=== PATIENT | male | born 1975 | race Caucasian/White ===

== ENCOUNTER 2020-02-18 10:59 | Inpatient (IN) ==
[~2020-02-18 10:59] MED LIST: BUPIVACAINE HCL 50 ML VIAL IJ ONE; RINGER'S SOLUTION,LACTATED 1,000 ML IV PRN; ceFAZolin SODIUM 1 GM VIAL IV PRN; ceFAZolin SODIUM 1 GM VIAL ONE
[2020-02-18] MEDS ORDERED: fentaNYL CITRATE/PF 50 MCG/ML AMPUL ONE (11:10)
[2020-02-18] MEDS ORDERED: ONDANSETRON HCL/PF 2 MG/ML VIAL ONE (11:10)
[2020-02-18] MEDS ORDERED: PROPOFOL VIAL IV ONE (11:10)
[2020-02-18] MEDS ORDERED: SEVOFLURANE 250 ML BTL IH ONE (11:11)
[2020-02-18] MEDS ORDERED: BACITRACIN 50,000 UNITS VIAL ONE (11:12)
--- NOTE | 2020-02-18 11:53 | ANES ---
Anesthesia Pre Procedure Eval Vitals/Labs: Last Vital Signs Temp 36.8 C 02/18/20 11:15 Pulse 105 H 02/18/20 11:15 Resp 18 02/18/20 11:15 BP 163/91 H 02/18/20 11:15 Pulse Ox 99 02/18/20 11:15 HOME MEDICATIONS blood sugar diagnostic See Dose Instructions .ROUTE .MEDSUPPLY #20 ea 09/11/17 [Last Taken Unknown] glimepiride 4 mg tablet 8 mg PO QAM #180 tab 03/30/19 [Last Taken Unknown] lisinopril 20 mg tablet 20 mg PO DAILY #90 tab 06/01/19 [Last Taken Unknown] rosuvastatin 40 mg tablet See Rx Instructions .ROUTE .COMPLEX #90 tab 06/01/19 [Last Taken Unknown] metformin 1,000 mg tablet 1,000 mg PO BID #120 tab 11/10/19 [Last Taken Unknown] pioglitazone 45 mg tablet 45 mg PO DAILY #60 tab 11/10/19 [Last Taken Unknown] sitagliptin 100 mg tablet 100 mg PO DAILY #30 tab 11/10/19 [Last Taken Unknown] Durable Medical Equipment See Rx Instructions .ROUTE .MEDSUPPLY #1 ea 02/10/20 [Last Taken Unknown] clindamycin HCl 300 mg capsule 300 mg PO TID #30 cap 02/10/20 [Last Taken Unknown] zolpidem 10 mg tablet 10 mg PO HS PRN #30 tab 02/10/20 [Last Taken Unknown] Allergies/Adverse Reactions: Allergies Allergy/AdvReac Type Severity Reaction Status Date / Time Penicillins Allergy Unknown Verified 02/18/20 11:31 ezetimibe [From Zetia] AdvReac Mild Other Verified 02/18/20 11:31 - Planned Procedure Planned Procedure: LT Foot Amputation Transmetatarsal Medication List Reviewed:: Yes Allergies Verified: Yes Medical History (Last Reviewed 02/18/20 @ 11:52 by Rasta Arias CRNA) Diabetes mellitus Onset Date: Unknown Dry skin Onset Date: 01/08/17 Hyperlipidemia Onset Date: Unknown Morbid obesity Onset Date: 03/08/12 Neuropathy Onset Date: 02/14/16 feet Obesity hypoventilation syndrome Onset Date: 04/02/12 Obstructive sleep apnea Onset Date: 04/22/12 severe, AHI 122 events per hour, lowest O2 sat 53% Onychomycosis Onset Date: 02/14/16 toe nails Cellulitis Onset Date: 03/08/12 right leg, severe, MRSA Ulcer Onset Date: 06/19/13 right [place], chronic, slowly healing, with very poor patient compliance. Surgical History (Last Reviewed 02/18/20 @ 11:52 by Rasta Arias CRNA) History of appendectomy Onset Date: ~1997 Family History (Last Reviewed 02/18/20 @ 11:52 by Rasta Arias CRNA) Mother Cellulitis Father Medical history unknown - Family Anesthesia History Family History:: no untoward family reactions to anesthesia - Airway/Neck/Teeth Teeth Condition: poor condition Neck Exam: limited range of motion Mallampatti Score: 3 Thyromental (T-M) distance: > 6 cm Mandibulo Hyoid distance: > 3 cm - Respiratory Respiratory Physical: lungs clear Smoking Status: Current every day smoker Discussed smoking cessation including day of surgery: Yes Sleep Apnea currently treated: Yes Sleep Apnea by current assessment: Yes - Cardiovascular Cardiac History: hypertension Tolerate Activity: Poor Heart Sounds: S1 & S2, Regular - Gastrointestinal NPO since: [place] - Anesthesia Assessment and Plan ASA Class: PS, III Anesthesia Type Plan: General LMA Planned difficult intubation/equipment available: No
[2020-02-18] MEDS ORDERED: BUPIVACAINE HCL 50 ML VIAL IJ ONE (12:49)
[2020-02-18] MEDS ORDERED: MORPHINE SULFATE 2 MG/ML DISP.SYRIN IV PRN (13:52)
[2020-02-18] MEDS ORDERED: MAG HYDROX/ALUMINUM HYD/SIMETH 30 ML UDC PO PRN (13:52)
[2020-02-18] MEDS ORDERED: MAGNESIUM HYDROXIDE 30 ML UDC PO PRN (13:52)
[2020-02-18] MEDS ORDERED: ZOLPIDEM TARTRATE 5 MG TABLET PO PRN (13:52)
[2020-02-18] MEDS ORDERED: ONDANSETRON HCL/PF 2 MG/ML VIAL IV PRN (13:52)
[2020-02-18] MEDS ORDERED: ACETAMINOPHEN 500 MG TABLET PO PRN (13:52)
[2020-02-18] MEDS ORDERED: diphenhydrAMINE HCL 50 MG/ML VIAL IV PRN (13:52)
[2020-02-18] MEDS ORDERED: ZOLPIDEM TARTRATE 10 MG TABLET PO PRN (13:54)
--- NOTE | 2020-02-18 14:03 | ANES ---
Post Anesthesia Discharge - Transfer of Care Transfer of Care handoff given to nurse: Yes - Discharge from PACU Discharge from PACU when meets criteria: Yes - Discharge to ASU Discharge to ASU-no complications/pt stable: Yes
--- NOTE | 2020-02-18 14:07 | OR ---
Operative Report - Dictated Report Narrative: Date: 02/18/2020 Surgeon: Jackson Guerrero M.D. Plastic And Reconstructive Surgeon: Mathew Montemayor PA-C (provided an essential set of skilled, educated hands that assisted with transfer, positioning, prepping, draping, manipulation, retraction, irrigation, placement of implants, closure of wounds, and application of splints and dressing all of which cannot be performed by the available surgical crew) Anesthesia: General plus local Preoperative diagnosis: Diabetic ulcer chronic with osteomyelitis and chronic wounds left foot Postoperative diagnosis: Diabetic ulcer chronic with osteomyelitis and chronic wounds left foot Procedure: Left foot transmetatarsal amputation Estimated blood loss: 100 mL Tourniquet time: 48 minutes minutes at 275 mmHg millimeters mercury Retained implants: None Drains: 7 Gabonese CHELE Specimens: Toes to pathology Complications: None Indications: Mr. Stone is a 44-year-old diabetic uncontrolled gentleman who has had a longstanding ulceration, deformity, and signs of osteomyelitis without gross sepsis in his left foot. They were seen in the in the clinic with images obtained revealing the above pathology. We discussed options for treatment with below the knee potation versus transmetatarsal amputation. Based on the available soft tissues for coverage it was elected to proceed with transmetatarsal amputation. The risks, benefits, and treatment options were discussed with the patient and the plan for transmetatarsal amputation was discussed. Risks were reviewed including , blood clots, nerve/tendon/blood vessel injury, failure of wound, persistent pain, need for additional procedures. Procedure: After a timeout, antibiotics consisting of Ancef was administered. A beanbag was utilized in order bump the operative leg and a well-padded tourniquet was applied to the operative thigh. A regional local anesthetic was placed around t he foot and ankle. A fishmouth type incision was made utilizing all healthy appearing skin over the dorsal and plantar aspect of the foot. Sharp dissection was carried through the skin transecting all the tendons, nerves, blood vessels. The soft tissue was elevated off the metatarsals. A cascade transection of the metatarsals were performed. There was noted osteomyelitis and soft bone most no tably in the great toe metatarsal and thus we shorten this down even further as well as in order to provide nontension reapproximation of the skin. Once was felt that we had removed all the offending tissues, the soft tissues were elevated off the remaining metatarsal bone. Tourniquet was deflated and hemostasis was obtained. There is no excessive bleeding. A 7 Gabonese drain was placed exiting proximal medial. The deep tissues were closed with interrupted 0 PDS. The subcutaneous tissue with 4-0 PDS and the skin with 3-0 nylon and byron. Xeroform 4 x 4 soft roll and Coban was applied. He was placed in a postoperative shoe. Patient was then awoken and transferred to postanesthesia care in stable condition. All sponge, sharp, and instrument counts were correct prior to closing the wounds.
[2020-02-18] MEDS: oxyCODONE HCL/ACETAMINOPHEN 1 TAB TABLET PO PRN (15:01)
[2020-02-18] MEDS: ceFAZolin SODIUM 1 GM in DEXTROSE 5 % IN WATER 100 ML IV SCH ×4 (15:01→20:55)
[2020-02-18] MEDS: RINGER'S SOLUTION,LACTATED 1,000 ML IV PRN (15:04)
--- NOTE | 2020-02-18 15:38 | CONS ---
HPI - General Date of Service: 02/18/20 Narrative: 44-year-old male with past medical history mellitus, hyperlipidemia, morbid obesity presents for elective left foot transmetatarsal amputation in the setting of chronic diabetic ulcers and chronic osteomyelitis. He tolerated the procedure well. I have been consulted to help manage his medical comorbidities. - History of Present Illness Allergies/Adverse Reactions: Allergies Penicillins Allergy (Unknown, Verified 02/18/20 11:31) ezetimibe [From Zetia] Adverse Reaction (Mild, Verified 02/18/20 11:31) Other gas Home Medications: Home Medications Medication Instructions Recorded Last Taken blood sugar diagnostic See Dose Instructions .ROUTE 09/11/17 Unknown .MEDSUPPLY #20 ea glimepiride 4 mg tablet 8 mg PO QAM #180 tab 03/30/19 Unknown lisinopril 20 mg tablet 20 mg PO DAILY #90 tab 06/01/19 Unknown rosuvastatin 40 mg tablet See Rx Instructions .ROUTE 06/01/19 Unknown .COMPLEX #90 tab metformin 1,000 mg tablet 1,000 mg PO BID #120 tab 11/10/19 Unknown pioglitazone 45 mg tablet 45 mg PO DAILY #60 tab 11/10/19 Unknown sitagliptin 100 mg tablet 100 mg PO DAILY #30 tab 11/10/19 Unknown Durable Medical Equipment See Rx Instructions .ROUTE 02/10/20 Unknown .MEDSUPPLY #1 ea clindamycin HCl 300 mg capsule 300 mg PO TID #30 cap 02/10/20 Unknown zolpidem 10 mg tablet 10 mg PO HS PRN #30 tab 02/10/20 Unknown Medications - Medications Current Medications: Current Medications Cefazolin Sodium (Cefazolin Sodium 1 Gm Vial) 2 gm IV PRN PRN; Protocol PRN Reason: Perioperative Antibiotics Stop: 02/18/20 23:00 Last Admin: 02/18/20 12:15 Dose: 2 gm Documented by: Lactated Ringer's (Lactated Ringers) 1,000 mls @ 175 mls/hr IV .Q5H43M PRN PRN Reason: HYDRATION Stop: 02/18/20 23:59 Last Admin: 02/18/20 11:45 Dose: 175 mls/hr Documented by: Cefazolin Sodium 1 gm/ (Dextrose/Water) 100 mls @ 200 mls/hr IV Q6H HEATHER; Dayna col Stop: 02/19/20 04:21 Last Admin: 02/18/20 15:01 Dose: 200 mls/hr Documented by: Lactated Ringer's (Lactated Ringers) 1,000 mls @ 125 mls/hr IV .Q8H PRN PRN Reason: HYDRATION Stop: 03/19/20 13:53 Last Admin: 02/18/20 15:04 Dose: 125 mls/hr Documented by: Oxycodone/Acetaminophen (Oxycodone Hcl/Acetaminophen 1 Tab Tablet) 2 tab PO Q4H PRN PRN Reason: Moderate Pain (pain scale 4-6) Stop: 03/19/20 13:53 Last Admin: 02/18/20 15:01 Dose: 2 tab Documented by: Review of Systems - Review of Systems Generalized/Overall Review: Absent: Fever Respiratory: Absent: Shortness of Breath Cardiac: Absent: Chest Pain Abdominal: Absent: Abdominal Pain Misc: All systems neg except as marked Physical Examination - Exam Vital Signs: Vital Signs - Last Taken Temp 36.3 C 02/18/20 14:32 Pulse 80 02/18/20 14:32 Resp 16 02/18/20 14:32 BP 101/68 02/18/20 14:32 Pulse Ox 95 02/18/20 14:32 O2 Oxygen Delivery Method Room Air Constitutional: Present: Cooperative, Well developed, Well nourished, No distress, Morbidly obese ENT Exam: Present: hearing grossly normal Eye Exam: bilateral eye: normal inspection Neck: Present: non-tender, supple. Absent: lymphadenopathy (R), lymphadenopathy (L) Respiratory: Present: lungs clear, no respiratory distress, no accessory muscle use, No wheezing. Absent: crackles, rhonchi Cardiovascular/Chest: Present: normal peripheral pulses, regular rate, rhythm, no murmur Peripheral Pulses: dorsalis-pedis (R): 1+, dorsalis-pedis (L): 1+ Abdomen: Present: Normal bowel sounds, soft, nontender, obese Extremity: Present: lower extremity edema Skin Exam: Present: normal color, warm/dry Neurologic: Present: alert, normal mood/affect Appearance: Present: appropriate appearance Eye contact: Present: cooperative Thoughts: Present: normal mood /affect - Results and Findings: Narrative: 44-year-old male with past medical history mellitus, hyperlipidemia, morbid obesity presents for elective left foot transmetatarsal amputation in the setting of chronic diabetic ulcers and chronic osteomyelitis. He tolerated the procedure well. I have been consulted to help manage his medical comorbidities. Plan #1 Home medications once tolerating oral intake. #2 consistent carbohydrate diet #3 pain management per the orthopedic team - Assessments/Findings (1) Status post amputation of left foot through metatarsal bone Problem: Acute (2) Body mass index (BMI) of 45.0 to 49.9 in adult Problem: Chronic (3) Diabetes mellitus type 2 in obese Problem: Chronic (4) Hyperlipidemia associated with type 2 diabetes mellitus Problem: Chronic (5) KANDY (obstructive sleep apnea) Problem: Chronic (6) HTN (hypertension) Problem: Acute Qualifiers: Hypertension type: essential hypertension Qualified Code(s): I10 - Essential (primary) hypertension
[2020-02-18] MEDS ORDERED: ROSUVASTATIN CALCIUM 20 MG TABLET PO SCH (21:00)
[2020-02-18] MEDS ORDERED: SENNOSIDES/DOCUSATE SODIUM 1 TAB TABLET PO SCH (21:00)
[2020-02-19] MEDS: RINGER'S SOLUTION,LACTATED 1,000 ML IV PRN (00:11)
[2020-02-19] MEDS: oxyCODONE HCL/ACETAMINOPHEN 1 TAB TABLET PO PRN (02:26)
[2020-02-19] MEDS: ceFAZolin SODIUM 1 GM in DEXTROSE 5 % IN WATER 100 ML IV SCH ×2 (04:29)
[2020-02-19 06:23] LABS: BUN/Creatinine Ratio 11.8 (9.0-21.6); Calcium * 8.7 mg/dL (7.9-10.9); Estimated Creat Clear 138.3
[2020-02-19 06:47] LABS: Hematocrit 33.7 % (42.0-52.0); Hemoglobin 10.4 gm/dL (13.5-18.0); Mean Cell Volume 90.6 fl (78-100); Mean Corpuscular Hgb Conc 30.9 g/dl (32-36); Mean Platelet Volume 8.6 fl (8-11.3); Platelet Count 351 K/mm3 (150-450); Red Blood Count 3.72 M/mm3 (4.7-6.0); Red Cell Distribution Width 17.4 % (11.5-14.0); White Blood Count 10.2 K/mm3 (4.0-10.5)
[2020-02-19] MEDS ORDERED: GLIMEPIRIDE 4 MG TABLET PO SCH (07:00)
[2020-02-19] MEDS ORDERED: LISINOPRIL 20 MG TABLET PO SCH (09:00)
[2020-02-19] MEDS ORDERED: sitaGLIPtin PHOSPHATE 50 MG TABLET PO SCH (09:00)
[2020-02-19] MEDS ORDERED: PIOGLITAZONE HCL 15 MG TABLET PO SCH (09:00)
--- NOTE | 2020-02-19 12:21 | PN ---
Subjective - Date and Time Seen Date: 02/19/20 Time: 12:17 Subjective Narrative: 44-year-old male was admitted postoperatively to the medicine team for postoperative evaluation after a transmetatarsal amputation of the left foot. Patient had history of chronic ulcers had been treated in the wound center around May and had significant underlying osteomyelitis. Patient today is doing well his pain is well controlled. He is been up and ambulated with physical therapy. He has no acute concerns. He notes he has had mild phantom pains, however these are intermittent. He denies any other acute concerns at this point. He otherwise notes he has a family number at home to help him. Objective - Vitals Vitals: Last Vital Signs Temp 36.9 C 02/19/20 11:13 Pulse 107 H 02/19/20 11:13 Resp 20 02/19/20 11:13 BP 117/65 02/19/20 11:13 Pulse Ox 98 02/19/20 11:13 - Abnormal Lab Findings Abnormal Lab Findings: Abnormal Lab Results 02/19/20 02/19/20 Range/Units 06:10 06:10 RBC 3.72 L (4.7-6.0) M/mm3 Hgb 10.4 L (13.5-18.0) gm/dL Hct 33.7 L (42.0-52.0) % MCHC 30.9 L (32-36) g/dl RDW 17.4 H (11.5-14.0) % Random Glucose 146 H (70-110) mg/dL - Exam Constitutional: Present: Alert, Cooperative, No distress Respiratory: Present: no respiratory distress Extremity: Present: other - Left lower extremity--> bandages clean, dry, intact, 5/5 plantar flexion/dorsiflexion of the ankle, diffuse mild diminished sensation similar to preoperative evaluation, chronic edema of the lower leg, drain in place Eye contact: Present: cooperative Thoughts: Present: normal thought pattern Assessment/Plan Plan Narrative: -44-year-old male admitted postoperatively yesterday. He is postop day 1 status post transmetatarsal amputation. Patient is done well without any significant acute complications. Patient will continue with the following recommendations: -Weightbearing as tolerated, postop shoe, assistive device -Maintain dressing in place follow-up on 02/23/2019 at the orthopedic outpatient clinic -Maintain dressings clean and dry, reinforced with dry gauze and Coban as needed -Pain medication p.o. Percocet -Chronic medical conditions per medicine team -Disposition: Plan to discharge home follow-up in 1 week with orthopedic outpatient clinic, chronic medical conditions recommendations per medicine team - Problems/Diagnosis (1) Status post amputation of left foot through metatarsal bone Problem: Acute
--- NOTE | 2020-02-19 13:34 | DS ---
Date of Discharge:: 02/19/20 Hospital Course: 44-year-old male admitted to the hospital for transmetatarsal amputation of his left foot due to chronic ulcers that had previously been treated and failed conservative measures at the wound center. Significant osteomyelitis seen. Patient is postop day 1 today, bandages clean dry and intact. Patient is doing well with his pain and his vital signs are stable. His lab work looks good, mildly anemic at 10.4 with his last hemoglobin roughly 1 month ago was 11.0. His kidney function is also appropriate with a creatinine of 0.85 and a GFR of 104 pain medication sent to his pharmacy. He will follow with orthopedics in 1 week. Patient has ambulated with physical therapy and will continue therapy in the outpatient setting. Patient will be discharged home today with follow-up with his PCP next week. Procedures Performed: see notes below - Transmetatarsal amputation left foot Results and Findings: Lab Pending Results 02/18/20 13:41: Pathology Specimen Spec to path 02/19/20 06:10: WBC 10.2, RBC 3.72 L, Hgb 10.4 L, Hct 33.7 L, MCV 90.6, MCH 28.0, MCHC 30.9 L, RDW 17.4 H, Plt Count 351, MPV 8.6 02/19/20 06:10: Sodium 134, Plasma Sodium 135, Potassium 4.0, Chloride 100, Carbon Dioxide 25.0, Anion Gap 13.0, BUN 10, Creatinine 0.85, Est GFR (Non-Af Amer) 104, BUN/Creatinine Ratio 11.8, Random Glucose 146 H, Calcium 8.7 Discharge Location: Home Disposition: Home self-care Condition: Stable Discharge Activity: Weight bearing - As tolerated Discharge Diet: Consistent carbs Referrals: David Valenzuela MD [Primary Care Provider] - One Week Problem Oriented Discharge Instructions to Patient/Family: Toe Amputation, Care After Additional Patient Instructions (free text): Please review discharge instructions. Follow-up appointment is scheduled for March 02 at 9:30am. Please call Dr. Guerrero's office with any questions or concerns, . Prescriptions (Any new or edited meds): oxyCODONE HCL/ACETAMINOPHEN [Percocet 5 MG/325 MG] 1 tab PO Q4H PRN #60 tab PRN Reason: Moderate Pain (Pain Scale 4-6) Transmission Status: Received by [facility], [place], [place] Complete Home Medications List: Complete Home Medication List: blood sugar diagnostic See Dose Instructions .ROUTE .MEDSUPPLY #20 ea 09/11/17 glimepiride 4 mg tablet 8 mg PO QAM #180 tab 03/30/19 lisinopril 20 mg tablet 20 mg PO DAILY #90 tab 06/01/19 rosuvastatin 40 mg tablet See Rx Instructions .ROUTE .COMPLEX #90 tab 06/01/19 metformin 1,000 mg tablet 1,000 mg PO BID #120 tab 11/10/19 pioglitazone 45 mg tablet 45 mg PO DAILY #60 tab 11/10/19 sitagliptin 100 mg tablet 100 mg PO DAILY #30 tab 11/10/19 Durable Medical Equipment See Rx Instructions .ROUTE .MEDSUPPLY #1 ea 02/10/20 clindamycin HCl 300 mg capsule 300 mg PO TID #30 cap 02/10/20 zolpidem 10 mg tablet 10 mg PO HS PRN #30 tab 02/10/20 oxyCODONE HCL/ACETAMINOPHEN [Percocet 5 MG/325 MG] 1 tab PO Q4H PRN #60 tab 02/19/20 Forms: Patient Portal Registration
[2020-02-19 14:40] VITALS: BP 102/44
[2020-02-19] MEDS ORDERED: oxyCODONE HCL/ACETAMINOPHEN 1 TAB TABLET PO ONE (15:00)
== END 2020-02-19 15:50 | disposition home or self-care (01) | DRG 617 ==
LOC: SUR 10:59 → MS 13:48
PROVIDERS: ADMIT Internal Medicine; ATTEND Allergy & Immunology
DX: Z68.42 Body mass index [BMI] 45.0-49.9, adult; E66.01 Morbid (severe) obesity due to excess calories; E11.65 Type 2 diabetes mellitus with hyperglycemia; E11.621 Type 2 diabetes mellitus with foot ulcer; Z79.01 Long term (current) use of anticoagulants; Z72.0 Tobacco use; E78.5 Hyperlipidemia, unspecified; Z79.84 Long term (current) use of oral hypoglycemic drugs; E11.69 Type 2 diabetes mellitus with other specified complication; G47.33 Obstructive sleep apnea (adult) (pediatric); M86.672 Other chronic osteomyelitis, left ankle and foot; I10 Essential (primary) hypertension